=== PATIENT | male | born 1945 | race Caucasian/White ===

== ENCOUNTER 2016-08-23 08:49 | Day surgery (SDC) | payer BC ==
[2016-08-23] MEDS ORDERED: MIDAZOLAM HCL 2MG/2ML VIAL IV ONE (14:00)
[2016-08-23] MEDS ORDERED: LIDOCAINE 2% MDV (20MG/ML) 20ML VIAL IV ONE (14:00)
[2016-08-23] MEDS ORDERED: PROPOFOL 10 MG/ML VIAL IV ONE (14:00)
--- NOTE | 2016-08-27 09:45 | Operative Note ---
DATE OF SURGERY: 08/23/2016 Surgeon: Aquiles Johns DO Referring physician: Karen Gandhi DO PREOPERATIVE DIAGNOSIS: Personal history of colon polyps and family history of colon cancer. POSTOPERATIVE DIAGNOSIS: Severe sigmoid diverticulosis, otherwise normal exam. OPERATION: SURVEILLANCE COLONOSCOPY PROCEDURE: After informed consent was obtained with the patient, he was placed in the left lateral decubitus position in the endoscopy suite, sedated and monitored by the Department of Anesthesia. Digital rectal exam was unremarkable. A well-lubricated PCF 180 colonoscope was inserted in the rectum and advanced to the cecum. The preparation quality was good. The cecum, ileocecal valve, appendicial orifice, ascending colon, transverse colon, descending colon, sigmoid colon, and rectum were unremarkable. There were, however, noted to be severe diverticular changes in the sigmoid colon marked by small and large diverticula. No polyps, mass, or lesions are seen in this area. The rectum was unremarkable in forward and in J-turn views. The endoscope was straightened. The rectal ampulla deflated. The endoscope was removed. RECOMMENDATIONS: I suggest the patient follow a high-fiber diet. Based on his family and personal history, a repeat exam in 5 years is recommended. As always, thank you for allowing me to participate in the care of your patient. CC: Dr. Karen Johns DO [facility]
== END 2016-08-23 10:27 | disposition home or self-care (01) ==
LOC: HOP 08:49
PROVIDERS: ATTEND Internal Medicine Gastroenterology
DX: Z86.010 Personal history of colon polyps (principal); K57.30 Diverticulosis of large intestine without perforation or abscess without bleeding; Z85.46 Personal history of malignant neoplasm of prostate; Z83.71 Family history of colonic polyps; F17.290 Nicotine dependence, other tobacco product, uncomplicated; Z79.82 Long term (current) use of aspirin
CPT/HCPCS: 00810; G0105